=== PATIENT | female | born 1950 | race Asian ===

== ENCOUNTER 2023-06-17 14:55 | Inpatient (IN) | payer OTHER ==
[2023-06-17] MEDS ORDERED: Morphine 2 MG/ML VIAL ONE (15:18)
[2023-06-17] MEDS ORDERED: Ondansetron PF 4 MG/2 ML Vial ONE (15:18)
[2023-06-17 15:40] LABS: #Basophils 0.1 thou/uL (0.0-0.2); #Eosinphils 0.2 thou/uL (0.0-0.7); #Monocytes 0.8 thou/uL (0.11-0.59); #Neutrophils 13.3 thou/uL (1.40-6.50); %Basophils 0.3 % (0.0-1.0); %Eosinophils 1.3 % (0.0-10.0); %Monocytes 4.7 % (0.0-10.0); Hematocrit 30.5 % (36.0-47.0); Hemoglobin 8.3 g/dL (12.0-16.0); Mean Corpuscular HGB CONC 27.2 g/dL (32.0-36.0); Mean Corpuscular Hemoglobin 17.1 pg (27.0-31.0); Mean Platelet Volume 9.2 fL (7.4-10.4); Platelet Count 556 10x3/uL (130-400); RBC Distribution Width 20.8 % (11.5-14.5); Red Blood Cell (RBC) Count 4.84 mill/uL (4.20-5.40); White Blood Cell (WBC) Count 17.5 10x3/uL (4.8-10.8)
[2023-06-17 15:55] LABS: INR-International Normal Ratio 1.1; PTT 27.8 sec (22.9-36.1); Prothrombin Time 14.2 sec (12.0-14.7)
[2023-06-17 16:02] LABS: ALT (SGPT) 19 U/L (8-55); AST (SGOT) 20 U/L (5-34); Albumin 4.1 g/dL (3.4-4.8); Alkaline Phosphatase 73 U/L (40-110); Anion Gap 17 mmol/L (10-20); BUN (Urea Nitrogen) 15 mg/dL (9.8-20.1); Bilirubin, Total 0.3 mg/dL (0.2-1.2); Calc. Creatinine Clearance 0 mL/min (70-130); Calcium 9.8 mg/dL (7.8-10.44); Carbon Dioxide 18 mmol/L (23-31); Chloride 106 mmol/L (98-107); Estimated GFR 72; Globulin 3.9 g/dL (2.4-3.5); Glucose 168 mg/dL (83-110); Potassium 3.8 mmol/L (3.5-5.1); Sodium 137 mmol/L (136-145)
[2023-06-17 16:19] LABS: Anisocytosis SLIGHT = 6-15 cells HPF (0-5); Burr Cells SLIGHT = 2-5 cells HPF (0-1); CellaVision Operator ID LAB.KB; Elliptocytes SLIGHT = 2-5 cells HPF (0-1); Hypochromia SLIGHT = 6-15 cells HPF (0-5); Microcytosis SLIGHT = 6-15 cells HPF (0-5); Platelet Adequacy Comment Platelets Increased; Polychromasia SLIGHT = 2-3 cells HPF (0-2)
[2023-06-17] MEDS ORDERED: Dextrose 50% Abboject 50 ML SYRINGE SLOW IVP PRN (16:23)
[2023-06-17] MEDS ORDERED: traMADol HCl 50 MG TAB PO PRN (16:23)
[2023-06-17] MEDS ORDERED: Dextrose 5% in Water 1,000 ML IV PRN (16:23)
[2023-06-17] MEDS ORDERED: Acetaminophen 325 MG TAB PO PRN (16:23)
[2023-06-17] MEDS ORDERED: TETANUS, DIPHTHERIA TOX,ADULT (TDVAX) 0.5 ML VIAL IM ONE (16:23)
[2023-06-17] MEDS ORDERED: Glucagon 1 MG/ML KIT IM PRN (16:23)
[2023-06-17] MEDS ORDERED: LORazepam 2 MG/ML SYR.(CARPUJECT) ONE (16:34)
[2023-06-17 17:49] VITALS: BMI 33.6
[2023-06-17] MEDS ORDERED: FLU VACC QS2023(65UP)/MF59C/PF 60 MCG/0.5 ML SYRINGE IM ONE (18:45)
[2023-06-17] MEDS ORDERED: Acetaminophen 325 MG TAB PO SCH (19:30)
[2023-06-17] MEDS: Morphine 2 MG/ML VIAL SLOW IVP PRN (19:30)
[2023-06-17] MEDS: Ibuprofen 600 MG TAB PO PRN (20:17)
[2023-06-18] MEDS: Acetaminophen 325 MG TAB PO SCH ×4 (00:25→16:19)
[2023-06-18] MEDS: Morphine 2 MG/ML VIAL SLOW IVP PRN (04:59)
[2023-06-18 06:18] LABS: #Eosinphils 0.2 thou/uL (0.0-0.7); #Monocytes 0.8 thou/uL (0.11-0.59); #Neutrophils 5.3 thou/uL (1.40-6.50); %Basophils 0.4 % (0.0-1.0); %Eosinophils 2.5 % (0.0-10.0); %Lymphocytes 30.3 % (21.0-51.0); %Monocytes 8.6 % (0.0-10.0); %Neutrophils 57.3 % (42.0-75.0); Hematocrit 25.9 % (36.0-47.0); Hemoglobin 7.2 g/dL (12.0-16.0); Mean Corpuscular HGB CONC 27.8 g/dL (32.0-36.0); Mean Corpuscular Hemoglobin 17.2 pg (27.0-31.0); Mean Corpuscular Volume 61.8 fl (78.0-98.0); Mean Platelet Volume 9.3 fL (7.4-10.4); Platelet Count 430 10x3/uL (130-400); RBC Distribution Width 20.1 % (11.5-14.5); Red Blood Cell (RBC) Count 4.19 mill/uL (4.20-5.40); White Blood Cell (WBC) Count 9.3 10x3/uL (4.8-10.8)
[2023-06-18 06:27] LABS: Hemoglobin A1c 6.5 % (4.0-6.0)
[2023-06-18] MEDS ORDERED: Senokot 8.6 MG TAB PO PRN (06:28)
[2023-06-18] MEDS ORDERED: Polyethylene Glycol 3350 17 GM Packet PO PRN (06:28)
[2023-06-18 06:51] LABS: ALT (SGPT) 16 U/L (8-55); AST (SGOT) 25 U/L (5-34); Albumin 3.2 g/dL (3.4-4.8); Alkaline Phosphatase 61 U/L (40-110); Anion Gap 12 mmol/L (10-20); BUN (Urea Nitrogen) 13 mg/dL (9.8-20.1); Bilirubin, Total 0.6 mg/dL (0.2-1.2); Calc. Creatinine Clearance 77 mL/min (70-130); Calcium 9.1 mg/dL (7.8-10.44); Carbon Dioxide 23 mmol/L (23-31); Chloride 108 mmol/L (98-107); Estimated GFR 73; Globulin 3.4 g/dL (2.4-3.5); Glucose 133 mg/dL (83-110); Potassium 4.1 mmol/L (3.5-5.1); Protein, Total 6.6 g/dL (5.8-8.1); Sodium 139 mmol/L (136-145)
[2023-06-18] MEDS ORDERED: fentaNYL PF 100 MCG/2 ML SYRINGE ONE (07:46)
[2023-06-18] MEDS ORDERED: Lidocaine 1% PF 5 ML VIAL ONE ×2 (07:46→08:23)
[2023-06-18] MEDS ORDERED: PROPOFOL 20 ML ONE (07:46)
[2023-06-18] MEDS ORDERED: Rocuronium Bromide 10 MG/ML (10ML VIAL) ONE ×2 (07:46→08:23)
[2023-06-18] MEDS ORDERED: Sodium Chloride 0.9% 100 ML ONE (08:10)
[2023-06-18] MEDS ORDERED: CEFAZOLIN 2 GM VIAL ONE (08:10)
[2023-06-18] MEDS ORDERED: Sevoflurane 250 ML INH ANEST BOTTLE ONE (08:16)
[2023-06-18] MEDS ORDERED: PHENYLEPHRINE-NS 100 MCG/ML 10 ML SYRINGE ONE ×2 (08:23→08:41)
[2023-06-18] MEDS ORDERED: Ondansetron PF 4 MG/2 ML Vial ONE ×2 (08:23→09:27)
[2023-06-18] MEDS ORDERED: ePHEDrine Sulfate 50 MG/10 ML VIAL ONE ×2 (08:23→08:42)
[2023-06-18] MEDS ORDERED: PROPOFOL 200 MG/20 ML VIAL ONE (08:23)
[2023-06-18] MEDS ORDERED: Dexamethasone 20 MG/5 ML VIAL ONE (09:27)
[2023-06-18] MEDS ORDERED: SUGAMMADEX SODIUM 200 MG/2 ML VIAL ONE (09:28)
[2023-06-18] MEDS ORDERED: fentaNYL 50 mcg/mL 1 mL Vial ONE ×2 (09:36→10:20)
[2023-06-18] MEDS ORDERED: Ondansetron HCl/PF 4 MG/2 ML Vial IVP PRN (10:01)
[2023-06-18] MEDS ORDERED: Promethazine HCl 25 MG/ML VIAL IM PRN (10:01)
[2023-06-18] MEDS: Lisinopril 20 MG TAB PO SCH (10:13)
[2023-06-18] MEDS: Ferrous Sulfate 325 MG TAB PO SCH ×2 (10:13→16:19)
[2023-06-18] MEDS: Ascorbic Acid 500 mg Chewable Tablet PO SCH (10:13)
[2023-06-18] MEDS: CEFAZOLIN 2 GM in Sodium Chloride 0.9% 100 ML IVPB SCH (16:18)
[2023-06-18] MEDS: Ibuprofen 600 MG TAB PO PRN (16:19)
[2023-06-19] MEDS: CEFAZOLIN 2 GM in Sodium Chloride 0.9% 100 ML IVPB SCH ×2 (00:03→08:47)
[2023-06-19] MEDS: Acetaminophen 325 MG TAB PO SCH ×5 (00:12→23:59)
[2023-06-19] MEDS: Ibuprofen 600 MG TAB PO PRN (03:49)
[2023-06-19] MEDS: Morphine 2 MG/ML VIAL SLOW IVP PRN (04:21)
[2023-06-19 05:33] LABS: #Eosinphils 0.1 thou/uL (0.0-0.7); #Monocytes 1.2 thou/uL (0.11-0.59); #Neutrophils 8.5 thou/uL (1.40-6.50); %Basophils 0.3 % (0.0-1.0); %Eosinophils 0.7 % (0.0-10.0); %Lymphocytes 18.8 % (21.0-51.0); %Monocytes 9.9 % (0.0-10.0); Hematocrit 30.8 % (36.0-47.0); Hemoglobin 8.6 g/dL (12.0-16.0); Mean Corpuscular HGB CONC 27.9 g/dL (32.0-36.0); Mean Platelet Volume 9.6 fL (7.4-10.4); Platelet Count 387 10x3/uL (130-400); Red Blood Cell (RBC) Count 4.77 mill/uL (4.20-5.40); White Blood Cell (WBC) Count 12.3 10x3/uL (4.8-10.8)
[2023-06-19 05:38] LABS: Mean Corpuscular Volume 64.6 fl (78.0-98.0)
[2023-06-19 06:19] LABS: Anisocytosis SLIGHT = 6-15 cells HPF (0-5); CellaVision Operator ID lab.abc; Elliptocytes SLIGHT = 2-5 cells HPF (0-1); Hypochromia SLIGHT = 6-15 cells HPF (0-5); Large Platelets 7.9 % (0-5); Microcytosis SLIGHT = 6-15 cells HPF (0-5); Platelet Adequacy Comment Platelets Normal; Polychromasia SLIGHT = 2-3 cells HPF (0-2); Smudge Cells 13.9 %
[2023-06-19] MEDS ORDERED: HYDROcodone/Acetaminophen 5/325 mg Tablet PO PRN (07:46)
[2023-06-19] MEDS: Sertraline 100 MG TAB PO SCH (08:47)
[2023-06-19] MEDS: Ascorbic Acid 500 mg Chewable Tablet PO SCH (08:47)
[2023-06-19] MEDS: Lisinopril 20 MG TAB PO SCH (08:47)
[2023-06-19] MEDS: Ferrous Sulfate 325 MG TAB PO SCH ×2 (08:47→17:23)
[2023-06-19] MEDS: Ketorolac Tromethamine 30 MG/ML VIAL IVP SCH ×2 (12:33→17:21)
[2023-06-19] MEDS ORDERED: Ipratropium/Albuterol 3 ML NEB NEB PRN (20:03)
[2023-06-19] MEDS ORDERED: Sodium Chloride 0.9% 500 ML IVPB SCH (21:30)
[2023-06-20] MEDS: hydrALAZINE 20 MG/ML VIAL SLOW IVP PRN ×2 (03:37→13:19)
[2023-06-20] MEDS: Ondansetron PF 4 MG/2 ML Vial IVP PRN ×3 (04:18→23:07)
[2023-06-20] MEDS: Ketorolac Tromethamine 30 MG/ML VIAL IVP SCH ×4 (05:22→18:08)
[2023-06-20 05:31] LABS: #Basophils 0.1 thou/uL (0.0-0.2); #Eosinphils 0.5 thou/uL (0.0-0.7); #Monocytes 0.7 thou/uL (0.11-0.59); #Neutrophils 7.4 thou/uL (1.40-6.50); %Basophils 0.5 % (0.0-1.0); %Eosinophils 4.4 % (0.0-10.0); %Lymphocytes 23.9 % (21.0-51.0); %Monocytes 6.1 % (0.0-10.0); %Neutrophils 63.2 % (42.0-75.0); Hematocrit 26.2 % (36.0-47.0); Hemoglobin 7.4 g/dL (12.0-16.0); Mean Corpuscular HGB CONC 28.2 g/dL (32.0-36.0); Mean Corpuscular Hemoglobin 18.1 pg (27.0-31.0); Mean Corpuscular Volume 64.1 fl (78.0-98.0); Mean Platelet Volume 9.1 fL (7.4-10.4); Platelet Count 403 10x3/uL (130-400); RBC Distribution Width 23.1 % (11.5-14.5); Red Blood Cell (RBC) Count 4.09 mill/uL (4.20-5.40); White Blood Cell (WBC) Count 11.7 10x3/uL (4.8-10.8)
[2023-06-20 07:17] LABS: Anisocytosis MODERATE=16-30 cells HPF (0-5); Burr Cells SLIGHT = 2-5 cells HPF (0-1); CellaVision Operator ID LAB.JMM; Elliptocytes SLIGHT = 2-5 cells HPF (0-1); Hypochromia SLIGHT = 6-15 cells HPF (0-5); Microcytosis SLIGHT = 6-15 cells HPF (0-5); Platelet Adequacy Comment Platelets Normal; Polychromasia SLIGHT = 2-3 cells HPF (0-2)
[2023-06-20] MEDS: Acetaminophen 325 MG TAB PO SCH ×4 (07:29→23:12)
[2023-06-20] MEDS: Ferrous Sulfate 325 MG TAB PO SCH ×3 (08:50→16:50)
[2023-06-20] MEDS: Sertraline 100 MG TAB PO SCH (08:52)
[2023-06-20] MEDS: Ascorbic Acid 500 mg Chewable Tablet PO SCH (08:52)
[2023-06-20] MEDS: Lisinopril 20 MG TAB PO SCH ×2 (08:52→21:25)
[2023-06-20] MEDS ORDERED: Magnesium Citrate 300 ML BOT PO SCH (09:15)
[2023-06-20 09:27] LABS: Anion Gap 13 mmol/L (10-20); BUN (Urea Nitrogen) 20 mg/dL (9.8-20.1); Calc. Creatinine Clearance 87 mL/min (70-130); Calcium 8.6 mg/dL (7.8-10.44); Carbon Dioxide 20 mmol/L (23-31); Chloride 110 mmol/L (98-107); Estimated GFR 82; Glucose 124 mg/dL (83-110); Sodium 139 mmol/L (136-145)
[2023-06-20] MEDS ORDERED: Lactated Ringer's 500 ML IV SCH (10:00)
[2023-06-20] MEDS: Lactated Ringer's 1,000 ML IV SCH ×2 (11:20→18:12)
[2023-06-20] MEDS: Senokot S 8.6-50 MG TAB PO SCH (21:26)
[2023-06-21] MEDS: Labetalol HCl 100 MG/20 ML VIAL SLOW IVP PRN ×3 (00:06→16:21)
[2023-06-21] MEDS: Ketorolac Tromethamine 30 MG/ML VIAL IVP SCH ×2 (00:07→04:51)
[2023-06-21] MEDS: Lactated Ringer's 1,000 ML IV SCH ×3 (04:51→22:49)
[2023-06-21 05:28] LABS: #Basophils 0.1 thou/uL (0.0-0.2); #Eosinphils 0.4 thou/uL (0.0-0.7); #Monocytes 0.7 thou/uL (0.11-0.59); #Neutrophils 7.8 thou/uL (1.40-6.50); %Basophils 0.5 % (0.0-1.0); %Eosinophils 3.9 % (0.0-10.0); %Lymphocytes 19.1 % (21.0-51.0); %Monocytes 6.2 % (0.0-10.0); %Neutrophils 68.8 % (42.0-75.0); Hematocrit 23.8 % (36.0-47.0); Hemoglobin 6.8 g/dL (12.0-16.0); Mean Corpuscular HGB CONC 28.6 g/dL (32.0-36.0); Mean Corpuscular Hemoglobin 18.5 pg (27.0-31.0); Mean Corpuscular Volume 64.9 fl (78.0-98.0); Mean Platelet Volume 9.6 fL (7.4-10.4); Platelet Count 401 10x3/uL (130-400); RBC Distribution Width 23.7 % (11.5-14.5); Red Blood Cell (RBC) Count 3.67 mill/uL (4.20-5.40); White Blood Cell (WBC) Count 11.4 10x3/uL (4.8-10.8)
[2023-06-21] MEDS: Acetaminophen 325 MG TAB PO SCH ×3 (07:38→15:30)
[2023-06-21] MEDS ORDERED: Scopolamine 1 mg/72 hour Patch TD SCH (08:00)
[2023-06-21] MEDS: Ferrous Sulfate 325 MG TAB PO SCH ×2 (08:04→15:30)
[2023-06-21] MEDS: Ondansetron PF 4 MG/2 ML Vial IVP PRN ×3 (08:25→21:01)
[2023-06-21 08:27] LABS: Anion Gap 11 mmol/L (10-20); BUN (Urea Nitrogen) 20 mg/dL (9.8-20.1); Calc. Creatinine Clearance 85 mL/min (70-130); Calcium 8.4 mg/dL (7.8-10.44); Carbon Dioxide 21 mmol/L (23-31); Chloride 111 mmol/L (98-107); Estimated GFR 79; Glucose 146 mg/dL (83-110); Magnesium 1.9 mg/dL (1.6-2.6); Phosphorus 3.7 mg/dL (2.3-4.7); Sodium 139 mmol/L (136-145)
[2023-06-21] MEDS: Ascorbic Acid 500 mg Chewable Tablet PO SCH (09:00)
[2023-06-21] MEDS ORDERED: hydrALAZINE 25 MG TAB PO SCH (09:00)
[2023-06-21] MEDS ORDERED: Amlodipine 10 MG TAB PO SCH (09:15)
[2023-06-21] MEDS: Acetaminophen/Codeine 30-300mg Tablet PO SCH ×2 (09:53→15:58)
[2023-06-21] MEDS: Senokot S 8.6-50 MG TAB PO SCH ×2 (09:55→21:04)
[2023-06-21] MEDS: Lisinopril 20 MG TAB PO SCH ×2 (09:55→21:04)
[2023-06-21] MEDS: Sertraline 100 MG TAB PO SCH (09:55)
[2023-06-21] MEDS ORDERED: Iopamidol 370 76% 100 ML VIAL ONE (10:40)
[2023-06-21] MEDS ORDERED: traMADol HCl 50 MG TAB PO SCH (12:00)
[2023-06-21] MEDS: hydrALAZINE 25 MG TAB PO SCH ×2 (15:57→21:04)
[2023-06-21] MEDS: Acetaminophen 500 MG TAB PO SCH ×2 (17:34→23:43)
[2023-06-21] MEDS ORDERED: Ipratropium/Albuterol 3 ML NEB NEB PRN (19:37)
[2023-06-21] MEDS: Cyclobenzaprine 10 MG TAB PO PRN (21:38)
[2023-06-22] MEDS: Labetalol HCl 100 MG/20 ML VIAL SLOW IVP PRN (04:07)
[2023-06-22 04:55] LABS: #Basophils 0.1 thou/uL (0.0-0.2); #Eosinphils 0.5 thou/uL (0.0-0.7); #Monocytes 0.8 thou/uL (0.11-0.59); #Neutrophils 9.5 thou/uL (1.40-6.50); %Basophils 0.4 % (0.0-1.0); %Eosinophils 3.4 % (0.0-10.0); %Lymphocytes 18.2 % (21.0-51.0); %Monocytes 5.7 % (0.0-10.0); %Neutrophils 71.1 % (42.0-75.0); Hematocrit 27.8 % (36.0-47.0); Hemoglobin 7.9 g/dL (12.0-16.0); Mean Corpuscular HGB CONC 28.4 g/dL (32.0-36.0); Mean Corpuscular Hemoglobin 18.9 pg (27.0-31.0); Mean Corpuscular Volume 66.5 fl (78.0-98.0); Mean Platelet Volume 9.2 fL (7.4-10.4); Platelet Count 395 10x3/uL (130-400); RBC Distribution Width 25.4 % (11.5-14.5); Red Blood Cell (RBC) Count 4.18 mill/uL (4.20-5.40); White Blood Cell (WBC) Count 13.4 10x3/uL (4.8-10.8)
[2023-06-22 05:16] LABS: ALT (SGPT) 13 U/L (8-55); AST (SGOT) 24 U/L (5-34); Alkaline Phosphatase 57 U/L (40-110); Anion Gap 12 mmol/L (10-20); BUN (Urea Nitrogen) 17 mg/dL (9.8-20.1); Bilirubin, Total 0.7 mg/dL (0.2-1.2); Calc. Creatinine Clearance 91 mL/min (70-130); Calcium 8.6 mg/dL (7.8-10.44); Carbon Dioxide 21 mmol/L (23-31); Chloride 107 mmol/L (98-107); Estimated GFR 86; Globulin 3.3 g/dL (2.4-3.5); Glucose 130 mg/dL (83-110); Protein, Total 6.3 g/dL (5.8-8.1); Sodium 136 mmol/L (136-145)
[2023-06-22] MEDS: Lactated Ringer's 1,000 ML IV SCH (05:49)
[2023-06-22] MEDS: Acetaminophen 500 MG TAB PO SCH ×3 (06:06→17:55)
[2023-06-22 08:55] LABS: Hypochromia MODERATE=16-30 cells (100X) (0-5/hpf); Polychromasia SLIGHT = 2-3 cells (100X) (0-2/hpf)
[2023-06-22 08:56] LABS: Microcytosis MODERATE=15-30 cells (100X) (0-5/hpf); Ovalocytes SLIGHT = 2-5 cells (100X) (0-1/hpf); Platelet Adequacy Comment Platelets Normal
[2023-06-22] MEDS: hydrALAZINE 25 MG TAB PO SCH ×3 (09:20→20:35)
[2023-06-22] MEDS: Sertraline 100 MG TAB PO SCH (09:20)
[2023-06-22] MEDS: Ferrous Sulfate 325 MG TAB PO SCH ×2 (09:20→17:52)
[2023-06-22] MEDS: Lisinopril 20 MG TAB PO SCH ×2 (09:20→20:35)
[2023-06-22] MEDS: Ibuprofen 600 MG TAB PO PRN ×2 (09:21→20:35)
[2023-06-22] MEDS: Amlodipine 10 MG TAB PO SCH (09:21)
[2023-06-22] MEDS: Senokot S 8.6-50 MG TAB PO SCH ×2 (09:22→20:36)
[2023-06-22] MEDS: Ascorbic Acid 500 mg Chewable Tablet PO SCH (09:22)
[2023-06-22 09:49] LABS: Band 4 % (5-11); Eosinophils 2 % (0-10); Lymphocytes 22 % (21-51); Monocytes 5 % (0-10); Neutrophil 67 % (42-75)
[2023-06-22] MEDS ORDERED: Furosemide 40 MG/4 ML VIAL SLOW IVP SCH (11:15)
[2023-06-22] MEDS: Cyclobenzaprine 10 MG TAB PO PRN (20:34)
[2023-06-23] MEDS: Acetaminophen 500 MG TAB PO SCH ×3 (01:19→12:20)
[2023-06-23 05:42] LABS: #Basophils 0.1 thou/uL (0.0-0.2); #Eosinphils 0.6 thou/uL (0.0-0.7); #Neutrophils 10.5 thou/uL (1.40-6.50); %Basophils 0.5 % (0.0-1.0); %Eosinophils 3.9 % (0.0-10.0); %Lymphocytes 13.7 % (21.0-51.0); %Monocytes 6.8 % (0.0-10.0); Hematocrit 29.1 % (36.0-47.0); Hemoglobin 8.3 g/dL (12.0-16.0); Mean Corpuscular HGB CONC 28.5 g/dL (32.0-36.0); Mean Corpuscular Hemoglobin 19.1 pg (27.0-31.0); Mean Corpuscular Volume 67.1 fl (78.0-98.0); Mean Platelet Volume 9.3 fL (7.4-10.4); Platelet Count 430 10x3/uL (130-400); RBC Distribution Width 26.5 % (11.5-14.5); Red Blood Cell (RBC) Count 4.34 mill/uL (4.20-5.40); White Blood Cell (WBC) Count 14.2 10x3/uL (4.8-10.8)
[2023-06-23 06:03] LABS: Anion Gap 12 mmol/L (10-20); BUN (Urea Nitrogen) 17 mg/dL (9.8-20.1); Calc. Creatinine Clearance 83 mL/min (70-130); Calcium 8.6 mg/dL (7.8-10.44); Carbon Dioxide 23 mmol/L (23-31); Chloride 105 mmol/L (98-107); Estimated GFR 77; Glucose 177 mg/dL (83-110); Potassium 3.5 mmol/L (3.5-5.1); Sodium 136 mmol/L (136-145)
[2023-06-23 06:12] LABS: Anisocytosis MODERATE=16-30 cells HPF (0-5); CellaVision Operator ID lab.sh2; Hypochromia SLIGHT = 6-15 cells HPF (0-5); Macrocytosis SLIGHT = 6-15 cells HPF (0-5); Microcytosis MODERATE=15-30 cells HPF (0-5); Ovalocytes MODERATE= 6-15 cells HPF (0-1); Platelet Adequacy Comment Platelets Increased; Polychromasia MODERATE = 3-4 cells HPF (0-2)
[2023-06-23] MEDS: Senokot S 8.6-50 MG TAB PO SCH (09:08)
[2023-06-23] MEDS: hydrALAZINE 25 MG TAB PO SCH ×2 (09:08→16:02)
[2023-06-23] MEDS: Lisinopril 20 MG TAB PO SCH (09:08)
[2023-06-23] MEDS: Amlodipine 10 MG TAB PO SCH (09:08)
[2023-06-23] MEDS: Ferrous Sulfate 325 MG TAB PO SCH (09:09)
[2023-06-23] MEDS: Ascorbic Acid 500 mg Chewable Tablet PO SCH (09:13)
[2023-06-23] MEDS: Sertraline 100 MG TAB PO SCH (09:13)
[2023-06-23 13:18] VITALS: BP 118/71; TEMP 97.8
== END 2023-06-23 14:26 | disposition home or self-care (01) | DRG 481 ==
LOC: ERS 14:55 → SURG B 16:23 → EDBD 16:23
PROVIDERS: ADMIT Specialist; ATTEND Specialist
PROC: 0QS706Z Reposition Left Upper Femur with Intramedullary Internal Fixation Device, Open Approach (ICD-10-PCS; principal; 2023-06-18)
PROC: 30233N1 Transfusion of Nonautologous Red Blood Cells into Peripheral Vein, Percutaneous Approach (ICD-10-PCS; 2023-06-18)
DX: S72.22XA Displaced subtrochanteric fracture of left femur, initial encounter for closed fracture (principal); D62 Acute posthemorrhagic anemia; J98.11 Atelectasis; I10 Essential (primary) hypertension; E86.0 Dehydration; K43.9 Ventral hernia without obstruction or gangrene; F39 Unspecified mood [affective] disorder; R19.7 Diarrhea, unspecified; E87.70 Fluid overload, unspecified; W01.0XXA Fall on same level from slipping, tripping and stumbling without subsequent striking against object, initial encounter; Z96.653 Presence of artificial knee joint, bilateral; Z85.038 Personal history of other malignant neoplasm of large intestine; Z98.890 Other specified postprocedural states; Z79.899 Other long term (current) drug therapy; Z90.49 Acquired absence of other specified parts of digestive tract
CPT/HCPCS: 36415; 36430; 71045; 71260; 72170; 74018; 74177; 76705; 80048; 80053; 82378; 83036; 83735; 83880; 84100; 85025; 85610; 85730; 86850; 86900; 86901; 93005; 93010; 93970; 94640; 96374; 96375; C1713; G0390; J0360; J1100; J1650; J1885; J1940; J2060; J2272; J2405; J2704; J3010; J3490; J7030; J7120; J7620; P9016; Q9967